=== PATIENT | female | born 1970 | race Caucasian/White ===

== ENCOUNTER 2016-06-24 17:27 | Emergency (ER) | payer MEDICARE, MEDICAID ==
[~2016-06-24] VITALS: Ht 162.6 cm; Wt 104.3 kg
[2016-06-24] MEDS ORDERED: XOPENEX HFA15 GM INH (19:39)
[2016-06-24] MEDS ORDERED: TESSALON PERLE100 M1 PO (19:40)
[2016-06-24] MEDS ORDERED: KLONOPIN0.5 MG PO (19:40)
[2016-06-24] MEDS ORDERED: MOBIC15 MG PO (19:41)
[2016-06-24] MEDS ORDERED: VITAMIN D31000 UNI1 PO (19:41)
[2016-06-24] MEDS ORDERED: PRILOSEC20 MG PO (19:41)
[2016-06-24] MEDS ORDERED: ZYRTEC10 M3 PO (19:42)
[2016-06-24] MEDS ORDERED: NEURONTIN100 MG PO (19:43)
[2016-06-24] MEDS ORDERED: HYDROCHLOROTHIA25 MG PO (19:43)
== END 2016-06-24 19:15 | disposition short-term general hospital (02) ==
LOC: ER 17:27 → EDBD 17:28 → ER 17:28
DX: R10.32 Left lower quadrant pain (principal); Z98.890 Other specified postprocedural states; Z79.899 Other long term (current) drug therapy; Z88.0 Allergy status to penicillin; Z88.6 Allergy status to analgesic agent; Z88.8 Allergy status to other drugs, medicaments and biological substances

== ENCOUNTER 2016-06-25 22:11 | Emergency (ER) | payer MEDICARE, MEDICAID ==
[~2016-06-25] VITALS: Ht 162.6 cm; Wt 122.4 kg
[~2016-06-25 22:11] MED LIST: HYDROCHLOROTHIA25 MG PO; KLONOPIN0.5 MG PO; MOBIC15 MG PO; NEURONTIN100 MG PO; PRILOSEC20 MG PO; TESSALON PERLE100 M1 PO; VITAMIN D31000 UNI1 PO; XOPENEX HFA15 GM INH; ZYRTEC10 M3 PO
== END 2016-06-26 01:57 | disposition short-term general hospital (02) ==
LOC: ER 22:11
DX: G89.18 Other acute postprocedural pain (principal); R10.32 Left lower quadrant pain; Z98.890 Other specified postprocedural states
CPT/HCPCS: J1885; J2405; Q9963; Q9967